=== PATIENT | female | born 1930 | race Caucasian/White ===

== ENCOUNTER 2016-08-28 19:53 | Observation (INO) | payer MEDICARE ==
[~2016-08-28] VITALS: Ht 170.2 cm; Wt 110.0 kg
[~2016-08-28 19:53] MED LIST: ASPIRIN CHILDRE81 MG PO; CARDIZEM C2 PO; COUMADIN2.5 MG PO; DOCUSATE SODIU250 MG PO; FERROUS SULFAT325 M1 PO; FOLIC ACID1 MG PO; KEPPRA500 MG PO; LOPERAMIDE HCL2 MG PO; LOVENOX150 MG/ML SC; MELOXICAM7.5 MG PO; PRENATAL1 TAB PO; PRILOSEC20 MG PO; SIMVASTATIN10 MG PO; SYSTANE OVERNIG0.3 % IO; TYLENOL325 MG PO; VICODIN EQUIVAL1 TAB PO
--- NOTE | 2016-08-28 21:23 | DIAGNOSTIC IMAGING REPORT ---
PROCEDURE: XR SOFT TISSUE NECK INDICATION: DIFFICULTY SWALLOWING TECHNIQUE: AP and lateral views. COMPARISON: None. FINDINGS: Normal epiglottis and prevertebral soft tissues. No evidence of a soft tissue mass, radiopaque foreign body or abnormal air collection. Normal airway on the AP view. Severe degenerative changes of the spine. IMPRESSION: 1. Negative study
--- NOTE | 2016-08-28 22:54 | ED CLINICAL REPORT ---
Clinical Report - Physicians/Mid Levels [facility] [address] [place] [address] 08/28/2016 19:52 Patient: SALMA MOORE Time Seen: 20:21. Arrived- By private vehicle. Historian- patient. CPT: ER phys charges level 5 (#[id number]). HISTORY OF PRESENT ILLNESS Chief Complaint: Foreign body stuck in her throat. This started just prior to arrival and is still present. It was abrupt in onset and has been constant. At its maximum, severity described as moderate. When seen in the E.D., severity described as moderate. Modifying factors- worsened by food. Not relieved by anything. The patient has had loss of appetite. (patient has a history of esophageal strictures and prior endoscopies and dilation. She was eating dinner this evening and developed sensation of food getting stuck there since that time she has not been able to swallow either liquids or solids and is having difficulty handling her secretions.). Similar symptoms previously: Several times, as bad. Diagnosis: (Esophageal stricture). Recent medical care: Not recently seen/assessed. REVIEW OF SYSTEMS No fever, sore throat, sinus drainage, nasal congestion or cough. No difficulty breathing, chest pain or pain or abdominal pain or pain. No nausea, vomiting, diarrhea, black stools or bloody stools. No difficulty with urination, skin rash, back pain or calf pain or pain. No headache, blackouts, chills, fever or sweats. No cough, difficulty breathing, pedal edema, palpitations or constipation. No diarrhea, nausea, vomiting or urinary problems. All systems otherwise negative, except as recorded above. PAST HISTORY Problems: Bronchitis. Atrial Fibrillation. Cholesterol problems . Sprain. CVA - Cerebrovascular Accident. Upper Extremity Fracture. Abrasion(s). Contusion. Dementia. Anemia. Memory impairment. Hypertension. Hyperlipidemia. Gastroesophageal Reflux Disease. Degenerative Joint Disease. Fall. Additional Surgeries: Esophageal Dilitations. Tonsillectomy. Medications: Acetaminophen Oral 1,000 mg, every 4 hres prn . ASA Oral 81mg , daily . Diltiazem HCl Oral 240 mg, daily. Docusate Sodium Oral (Capsule 250 mg) 1 capsule, daily as needed. Ferrous Sulfate Oral 325 mg, 2x a day. Folic Acid Oral (Tablet 1 mg) 1 tablet, daily. Keppra Oral 500 mg, 2x a day. Omeprazole Oral 20 mg, 2x a day. Prenat MV-FE [place]-PU-[place] Oral. Simvastatin Oral 10 mg, daily. Vicodin Oral 5 mg, at bedtime as needed. Allergies: Cephalexin.(rash, swelling) Clindamycin.(rash, swelling). SOCIAL HISTORY Never smoker. No alcohol use or drug use. ADDITIONAL NOTES The nursing notes have been reviewed. PHYSICAL EXAM Vital Signs: 08/28/2016 20:04 BP: 141/79. HR: 80. RR: 20. O2 saturation: 98%. Temp: 99.5 F. Pain level now: 0/10. Have been reviewed. Appearance: Alert. Eyes: Pupils equal, round and reactive to light. ENT: Pharynx normal. Neck: Normal inspection. Neck supple. CVS: Normal heart rate and rhythm. Heart sounds normal. Respiratory: No respiratory distress. Breath sounds normal. Abdomen: No visible injury. Soft and nontender. Bowel sounds normal. No organomegaly. No mass. Obese. Back: Normal inspection. Skin: Skin warm and dry. Normal skin color. Normal skin turgor. Extremities: Extremities exhibit normal ROM. No calf tenderness. No lower extremity edema. Neuro: Oriented X 3. No motor deficit. No sensory deficit. Reflexes normal. PROGRESS AND PROCEDURES Course of Care: 21:39 08/28/16. The case was discussed with Dr. Taveras at change of shift reviewed the patient's history and examination and x-ray findings. He will assume care of the patient and arrange an appropriate disposition for her. - MW Pt not responding to glucagon. Patient is stable. Discussed case with on-call health care provider, (Hermelindo). Reviewed test results. Agreed upon treatment plan and decision to admit. Health care provider will see patient in hospital. Patient/family counseled. Old medical records ordered. Disposition orders written. Disposition: Admitted to Acute Care. CLINICAL IMPRESSION Esophageal FB. (Electronically signed by Elia Taveras MD 08/29/2016 8:40)
--- NOTE | 2016-08-28 22:54 | ED ORDER SUMMARY ---
..... Patient: SALMA MOORE OrderSheet [facility] VisitID: [id number] [address] [place] [address] 85y, F Registration Date/Time: 08/28/2016 ORDER SHEET Weight: 111.1 kg (estimated) Allergies: Cephalexin, Clindamycin GENERAL ORDERS: Soft Tissue Neck Urgent (20:22 08/28/2016 Amol HERNANDEZ) (Ack 20:23 AMcQuoid ER Tech1) (21:03 MCampbell) MEDICATION ORDERS: Glucagon IV 0.5 mg (NOW) (20:49 08/28/2016 Amol HERNANDEZ) (21:22 Doretha R.N.) IV FLUIDS: IV Saline Lock (20:22 08/28/2016 Amol HERNANDEZ) (21:20 Doretha R.N.) Reglan IV 10 mg (NOW) (23:00 08/28/2016 Matthias HERNANDEZ) (23:50 Doretha R.N.) Zofran IV 4 mg (NOW) (23:00 08/28/2016 Matthias HERNANDEZ) (23:47 Doretha R.N.) Pepcid IV 20 mg/50mL (NOW) (23:01 08/28/2016 Matthias HERNANDEZ) (23:48 Doretha R.N.) Demerol IV 6.25 mg IV (NOW) (23:04 08/28/2016 Matthias HERNANDEZ) (23:49 Doretha R.N.) IV Lactated Ringers : initial bolus none -, then 100 mL/hr (NOW) (23:14 08/28/2016 Doretha R.N. verbal order read back to Amol HERNANDEZ) (23:46 Doretha R.N.) ORDER SHEET NOTES: [Electronically signed by Royer Mitchell R.N. (08/29/2016)] [Electronically signed by Elia Taveras MD (08:40 08/29/2016)] [Electronically locked/signed by Royer Mitchell R.N. (08/29/2016)]
--- NOTE | 2016-08-28 22:54 | ED CLINICAL REPORT ---
Clinical Report - Physicians/Mid Levels [facility] [address] [place] [address] 08/28/2016 19:52 Patient: SALMA MOORE Time Seen: 20:21. Arrived- By private vehicle. Historian- patient. CPT: ER phys charges level 5 (#[id number]). HISTORY OF PRESENT ILLNESS Chief Complaint: Foreign body stuck in her throat. This started just prior to arrival and is still present. It was abrupt in onset and has been constant. At its maximum, severity described as moderate. When seen in the E.D., severity described as moderate. Modifying factors- worsened by food. Not relieved by anything. The patient has had loss of appetite. (patient has a history of esophageal strictures and prior endoscopies and dilation. She was eating dinner this evening and developed sensation of food getting stuck there since that time she has not been able to swallow either liquids or solids and is having difficulty handling her secretions.). Similar symptoms previously: Several times, as bad. Diagnosis: (Esophageal stricture). Recent medical care: Not recently seen/assessed. REVIEW OF SYSTEMS No fever, sore throat, sinus drainage, nasal congestion or cough. No difficulty breathing, chest pain or pain or abdominal pain or pain. No nausea, vomiting, diarrhea, black stools or bloody stools. No difficulty with urination, skin rash, back pain or calf pain or pain. No headache, blackouts, chills, fever or sweats. No cough, difficulty breathing, pedal edema, palpitations or constipation. No diarrhea, nausea, vomiting or urinary problems. All systems otherwise negative, except as recorded above. PAST HISTORY Problems: Bronchitis. Atrial Fibrillation. Cholesterol problems . Sprain. CVA - Cerebrovascular Accident. Upper Extremity Fracture. Abrasion(s). Contusion. Dementia. Anemia. Memory impairment. Hypertension. Hyperlipidemia. Gastroesophageal Reflux Disease. Degenerative Joint Disease. Fall. Additional Surgeries: Esophageal Dilitations. Tonsillectomy. Medications: Acetaminophen Oral 1,000 mg, every 4 hres prn . ASA Oral 81mg , daily . Diltiazem HCl Oral 240 mg, daily. Docusate Sodium Oral (Capsule 250 mg) 1 capsule, daily as needed. Ferrous Sulfate Oral 325 mg, 2x a day. Folic Acid Oral (Tablet 1 mg) 1 tablet, daily. Keppra Oral 500 mg, 2x a day. Omeprazole Oral 20 mg, 2x a day. Prenat MV-FE [place]-JH-YS-[place] Oral. Simvastatin Oral 10 mg, daily. Vicodin Oral 5 mg, at bedtime as needed. Allergies: Cephalexin.(rash, swelling) Clindamycin.(rash, swelling). SOCIAL HISTORY Never smoker. No alcohol use or drug use. ADDITIONAL NOTES The nursing notes have been reviewed. PHYSICAL EXAM Vital Signs: 08/28/2016 20:04 BP: 141/79. HR: 80. RR: 20. O2 saturation: 98%. Temp: 99.5 F. Pain level now: 0/10. Have been reviewed. Appearance: Alert. Eyes: Pupils equal, round and reactive to light. ENT: Pharynx normal. Neck: Normal inspection. Neck supple. CVS: Normal heart rate and rhythm. Heart sounds normal. Respiratory: No respiratory distress. Breath sounds normal. Abdomen: No visible injury. Soft and nontender. Bowel sounds normal. No organomegaly. No mass. Obese. Back: Normal inspection. Skin: Skin warm and dry. Normal skin color. Normal skin turgor. Extremities: Extremities exhibit normal ROM. No calf tenderness. No lower extremity edema. Neuro: Oriented X 3. No motor deficit. No sensory deficit. Reflexes normal. PROGRESS AND PROCEDURES Course of Care: 21:39 08/28/16. The case was discussed with Dr. Taveras at change of shift reviewed the patient's history and examination and x-ray findings. He will assume care of the patient and arrange an appropriate disposition for her. - MW Pt not responding to glucagon. Patient is stable. Discussed case with on-call health care provider, (Hermelindo). Reviewed test results. Agreed upon treatment plan and decision to admit. Health care provider will see patient in hospital. Patient/family counseled. Old medical records ordered. Disposition orders written. Disposition: Admitted to Acute Care. CLINICAL IMPRESSION Esophageal FB. (Electronically signed by Elia Taveras MD 08/29/2016 8:40)
--- NOTE | 2016-08-28 22:54 | ED NURSING NOTES ---
Clinical Report - Nurses [facility] [address] [place] [address] 08/28/2016 19:52 Patient: SALMA MOORE TRIAGE Triage time 20:04 Aug 28 2016. Acuity: LEVEL 3. Chief Complaint: SWALLOWED FOREIGN BODY. Alert. JOANNE COMA SCORE: [place] Coma Scale: 15- eyes open spontaneously (4); best verbal response- oriented x 4 (5); best motor response- obeys commands (6). --20:17 Royer Mitchell R.N. 20:04 08/28/16. BP: 141/79. HR: 80. RR: 20. O2 saturation: 98%. Temp: 99.5 F (oral). Pain level now: 0/10. --20:17 Royer Mitchell R.N. Weight: 111.1 kg estimated. Height/Length: 67 inches Per Patient. BMI: 38.4. --20:06 Royer Mitchell R.N. Medications Acetaminophen Oral 1,000 mg, every 4 hres prn . ASA Oral 81mg , daily . Diltiazem HCl Oral 240 mg, daily. Docusate Sodium Oral (Capsule 250 mg) 1 capsule, daily as needed. Ferrous Sulfate Oral 325 mg, 2x a day. Folic Acid Oral (Tablet 1 mg) 1 tablet, daily. Keppra Oral 500 mg, 2x a day. Omeprazole Oral 20 mg, 2x a day. Prenat MV-FE [place]-IJ-[place] Oral. Simvastatin Oral 10 mg, daily. Vicodin Oral 5 mg, at bedtime as needed. --20:13 Royer Mitchell R.N. Allergies Cephalexin.(rash, swelling) Clindamycin.(rash, swelling) --20:13 Royer Mitchell R.N. Medication/allergy information source: the patient. --20:17 Royer Mitchell R.N. History Arrived by private vehicle. Historian: patient. Accompanied by daughter. [place] ( Choking during dinner on a bite of food.). This started today. She has had weakness and a cough. 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 PAST MEDICAL HX: Hypertension. Immunizations: up-to-date. The patient is post-menopausal. SOCIAL HX: Never smoker. No alcohol use or drug use. No infectious disease exposure. ABUSE ASSESSMENT: No report of abuse. FALL RISK ASSESSMENT: Fall risk assessment completed. No fall risk identified. NUTRITIONAL RISK ASSESSMENT: The nutritional risk assessment revealed no deficiencies. FUNCTIONAL ASSESSMENT: Functional assessment: no impairments noted. LEARNING NEEDS ASSESSMENT: The learning needs assessment revealed no barriers. SKIN INTEGRITY ASSESSMENT: Skin integrity risk assessment completed. No skin integrity risk identified. --20:17 Royer Mitchell R.N. PROBLEMS: Atrial Fibrillation. Cholesterol problems . CVA - Cerebrovascular Accident. Upper Extremity Fracture. Dementia. Hyperlipidemia. Degenerative Joint Disease. UTI - Urinary Tract Infection. --20:14 Royer Mitchell R.N. TIA - Transient Ischemic Attack [RuleOut]. --20:14 Royer Mitchell R.N. Bronchitis. --20:16 Royer Mitchell R.N. ADDITIONAL SURGERIES: Esophageal Dilitations. Tonsillectomy. --20:15 Royer Mitchell R.N. Interventions ID and allergy band on patient. To treatment room. --20:17 Royer Mitchell R.N. PHYSICAL ASSESSMENT Ambulatory to room. GENERAL / NEURO / PSYCH: Alert. Oriented X 4. HEENT: No facial asymmetry noted. Mucous membranes are pink. RESPIRATORY: Chest nontender. Breath sounds within normal limits. CVS: Cardiac rhythm: atrial fibrillation. Pulses within normal limits. GI / : Abdomen nontender and normal bowel sounds. SKIN: Skin intact. Skin is warm and dry. Normal skin turgor. --20:19 Royer Mitchell R.N. NURSING PROGRESS NOTES Patient gowned. Reassurance given. Patient identifiers checked. Call light placed in reach. Side rails up x 1. Bed placed in lowest position. Brakes of bed on. Patient ready for evaluation- chart flagged and ED physician notified. --20:19 Royer Mitchell R.N. 20:29 08/28/16. Patient transported to radiology by stretcher with tech. --20:34 Royer Mitchell R.N. 21:05 08/28/2016 Site #1 started via IV in the right forearm with an 22g angiocath, with aseptic technique and good blood return; two attempts. Blood drawn: rainbow set. Labeled in the presence of the patient and sent to the lab. Saline lock flushed with 10 mL saline. --21:20 Royer Mitchell R.N. 21:15 08/28/2016 Glucagon IVP 0.5 mg given over 1 minute(s) via site #1. Allergies verified and confirmed 5 rights. IV patency established. IV site checked: no pain, redness, or swelling. IV flushed thoroughly pre- and post-medication administration. IVP given by RN. --21:22 Royer Mitchell R.N. 22:16 08/28/16. BP: 119/88. HR: 78. RR: 20. O2 saturation: 96% on room air. --22:17 Royer Mitchell R.N. 23:31 08/28/2016 Started bag #1 1000 mL IV Fluids IV LACTATED RINGERS; at 100 mL/hr over 10 hour(s) via site #1 via IV pump. Allergies verified and confirmed 5 rights. IV patency established. IV site checked: no pain, redness, or swelling. IV flushed thoroughly pre- and post-medication administration. --23:46 Royer Mitchell R.N. 23:37 08/28/2016 Zofran (Ondansetron HCl) IVP 4 mg given over 2 minute(s) via site #1. Allergies verified and confirmed 5 rights. IV patency established. IV site checked: no pain, redness, or swelling. IV flushed thoroughly pre- and post-medication administration. IVP given by RN. --23:47 Royer Mitchell R.N. 23:38 08/28/2016 Pepcid IVP 20 mg given over 20 minute(s) via site #1. Allergies verified and confirmed 5 rights. IV patency established. IV site checked: no pain, redness, or swelling. IV flushed thoroughly pre- and post-medication administration. IVP given by RN. --23:48 Royer Mitchell R.N. 23:40 08/28/2016 Reglan (Metoclopramide HCl) IVP 10 mg given over 2 minute(s) via site #1. Allergies verified and confirmed 5 rights. IV patency established. IV site checked: no pain, redness, or swelling. IV flushed thoroughly pre- and post-medication administration. IVP given by RN. --23:50 Royer Mitchell R.N. 23:44 08/28/2016 Demerol * IVP 6.25mg --23:49 Royer Mitchell R.N. 00:30 08/29/2016 Site #[address] upon admission; patent and no signs of infection or infiltration. Good blood return present (IV infusing). --01:13 Royer Mitchell R.N. 00:30 08/29/2016 IV Fluids IV LACTATED RINGERS Continued: upon admission at the rate of 100 mL/hr. 900 mL remaining bag #1. IV patency established. IV site checked: no pain, redness, or swelling. IV flushed thoroughly. --01:14 Royer Mitchell R.N. DISPOSITION / DISCHARGE 23:40 08/28/16. BP: 127/58. HR: 78. RR: 16. O2 saturation: 96%. Pain level now: 0/10. --01:24 Royer Mitchell R.N. Departure time: 23:45 Aug 28 2016. --01:24 Royer Mitchell R.N. 23:45. Admitted to Acute Care. Transported via stretcher by tech and nurse with IV. Report was given to a nurse via a phone call. Report included patient's care, treatment, medications, reviewed medication reconcilliation, and condition (including any recent changes or anticipated changes). All questions were answered. Report was acknowledged and care was transferred. (EDSON Cedillo). Patient's personal items; items were placed in belongings bag and transported with the patient. --01:25 Royer Mitchell R.N. 23:45 08/28/16. Temp: 99.2 F (oral). --01:27 Royer Mitchell R.N. Locked/Released at 08/29/2016 1:27 by Royer Mitchell R.N.
--- NOTE | 2016-08-28 22:54 | ED NURSING NOTES ---
Clinical Report - Nurses [facility] [address] [place] [address] 08/28/2016 19:52 Patient: SALMA MOORE TRIAGE Triage time 20:04 Aug 28 2016. Acuity: LEVEL 3. Chief Complaint: SWALLOWED FOREIGN BODY. Alert. JOANNE COMA SCORE: [place] Coma Scale: 15- eyes open spontaneously (4); best verbal response- oriented x 4 (5); best motor response- obeys commands (6). --20:17 Royer Mitchell R.N. 20:04 08/28/16. BP: 141/79. HR: 80. RR: 20. O2 saturation: 98%. Temp: 99.5 F (oral). Pain level now: 0/10. --20:17 Royer Mitchell R.N. Weight: 111.1 kg estimated. Height/Length: 67 inches Per Patient. BMI: 38.4. --20:06 Royer Mitchell R.N. Medications Acetaminophen Oral 1,000 mg, every 4 hres prn . ASA Oral 81mg , daily . Diltiazem HCl Oral 240 mg, daily. Docusate Sodium Oral (Capsule 250 mg) 1 capsule, daily as needed. Ferrous Sulfate Oral 325 mg, 2x a day. Folic Acid Oral (Tablet 1 mg) 1 tablet, daily. Keppra Oral 500 mg, 2x a day. Omeprazole Oral 20 mg, 2x a day. Prenat MV-FE [place] Oral. Simvastatin Oral 10 mg, daily. Vicodin Oral 5 mg, at bedtime as needed. --20:13 Royer Mitchell R.N. Allergies Cephalexin.(rash, swelling) Clindamycin.(rash, swelling) --20:13 Royer Mitchell R.N. Medication/allergy information source: the patient. --20:17 Royer Mitchell R.N. History Arrived by private vehicle. Historian: patient. Accompanied by daughter. [place] ( Choking during dinner on a bite of food.). This started today. She has had weakness and a cough. 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 PAST MEDICAL HX: Hypertension. Immunizations: up-to-date. The patient is post-menopausal. SOCIAL HX: Never smoker. No alcohol use or drug use. No infectious disease exposure. ABUSE ASSESSMENT: No report of abuse. FALL RISK ASSESSMENT: Fall risk assessment completed. No fall risk identified. NUTRITIONAL RISK ASSESSMENT: The nutritional risk assessment revealed no deficiencies. FUNCTIONAL ASSESSMENT: Functional assessment: no impairments noted. LEARNING NEEDS ASSESSMENT: The learning needs assessment revealed no barriers. SKIN INTEGRITY ASSESSMENT: Skin integrity risk assessment completed. No skin integrity risk identified. --20:17 Royer Mitchell R.N. PROBLEMS: Atrial Fibrillation. Cholesterol problems . CVA - Cerebrovascular Accident. Upper Extremity Fracture. Dementia. Hyperlipidemia. Degenerative Joint Disease. UTI - Urinary Tract Infection. --20:14 Royer Mitchell R.N. TIA - Transient Ischemic Attack [RuleOut]. --20:14 Royer Mitchell R.N. Bronchitis. --20:16 Royer Mitchell R.N. ADDITIONAL SURGERIES: Esophageal Dilitations. Tonsillectomy. --20:15 Royer Mitchell R.N. Interventions ID and allergy band on patient. To treatment room. --20:17 Royer Mitchell R.N. PHYSICAL ASSESSMENT Ambulatory to room. GENERAL / NEURO / PSYCH: Alert. Oriented X 4. HEENT: No facial asymmetry noted. Mucous membranes are pink. RESPIRATORY: Chest nontender. Breath sounds within normal limits. CVS: Cardiac rhythm: atrial fibrillation. Pulses within normal limits. GI / : Abdomen nontender and normal bowel sounds. SKIN: Skin intact. Skin is warm and dry. Normal skin turgor. --20:19 Royer Mitchell R.N. NURSING PROGRESS NOTES Patient gowned. Reassurance given. Patient identifiers checked. Call light placed in reach. Side rails up x 1. Bed placed in lowest position. Brakes of bed on. Patient ready for evaluation- chart flagged and ED physician notified. --20:19 Royer Mitchell R.N. 20:29 08/28/16. Patient transported to radiology by stretcher with tech. --20:34 Royer Mitchell R.N. 21:05 08/28/2016 Site #1 started via IV in the right forearm with an 22g angiocath, with aseptic technique and good blood return; two attempts. Blood drawn: rainbow set. Labeled in the presence of the patient and sent to the lab. Saline lock flushed with 10 mL saline. --21:20 Royer Mitchell R.N. 21:15 08/28/2016 Glucagon IVP 0.5 mg given over 1 minute(s) via site #1. Allergies verified and confirmed 5 rights. IV patency established. IV site checked: no pain, redness, or swelling. IV flushed thoroughly pre- and post-medication administration. IVP given by RN. --21:22 Royer Mitchell R.N. 22:16 08/28/16. BP: 119/88. HR: 78. RR: 20. O2 saturation: 96% on room air. --22:17 Royer Mitchell R.N. 23:31 08/28/2016 Started bag #1 1000 mL IV Fluids IV LACTATED RINGERS; at 100 mL/hr over 10 hour(s) via site #1 via IV pump. Allergies verified and confirmed 5 rights. IV patency established. IV site checked: no pain, redness, or swelling. IV flushed thoroughly pre- and post-medication administration. --23:46 Royer Mitchell R.N. 23:37 08/28/2016 Zofran (Ondansetron HCl) IVP 4 mg given over 2 minute(s) via site #1. Allergies verified and confirmed 5 rights. IV patency established. IV site checked: no pain, redness, or swelling. IV flushed thoroughly pre- and post-medication administration. IVP given by RN. --23:47 Royer Mitchell R.N. 23:38 08/28/2016 Pepcid IVP 20 mg given over 20 minute(s) via site #1. Allergies verified and confirmed 5 rights. IV patency established. IV site checked: no pain, redness, or swelling. IV flushed thoroughly pre- and post-medication administration. IVP given by RN. --23:48 Royer Mitchell R.N. 23:40 08/28/2016 Reglan (Metoclopramide HCl) IVP 10 mg given over 2 minute(s) via site #1. Allergies verified and confirmed 5 rights. IV patency established. IV site checked: no pain, redness, or swelling. IV flushed thoroughly pre- and post-medication administration. IVP given by RN. --23:50 Royer Mitchell R.N. 23:44 08/28/2016 Demerol * IVP 6.25mg --23:49 Royer Mitchell R.N. 00:30 08/29/2016 Site #[address] upon admission; patent and no signs of infection or infiltration. Good blood return present (IV infusing). --01:13 Royer Mitchell R.N. 00:30 08/29/2016 IV Fluids IV LACTATED RINGERS Continued: upon admission at the rate of 100 mL/hr. 900 mL remaining bag #1. IV patency established. IV site checked: no pain, redness, or swelling. IV flushed thoroughly. --01:14 Royer Mitchell R.N. DISPOSITION / DISCHARGE 23:40 08/28/16. BP: 127/58. HR: 78. RR: 16. O2 saturation: 96%. Pain level now: 0/10. --01:24 Royer Mitchell R.N. Departure time: 23:45 Aug 28 2016. --01:24 Royer Mitchell R.N. 23:45. Admitted to Acute Care. Transported via stretcher by tech and nurse with IV. Report was given to a nurse via a phone call. Report included patient's care, treatment, medications, reviewed medication reconcilliation, and condition (including any recent changes or anticipated changes). All questions were answered. Report was acknowledged and care was transferred. (EDSON Cedillo). Patient's personal items; items were placed in belongings bag and transported with the patient. --01:25 Royer Mitchell R.N. 23:45 08/28/16. Temp: 99.2 F (oral). --01:27 Royer Mitchell R.N. Locked/Released at 08/29/2016 1:27 by Royer Mitchell R.N.
--- NOTE | 2016-08-28 22:54 | ED ORDER SUMMARY ---
..... Patient: SALMA MOORE OrderSheet [facility] VisitID: [id number] [address] [place] [address] 85y, F Registration Date/Time: 08/28/2016 ORDER SHEET Weight: 111.1 kg (estimated) Allergies: Cephalexin, Clindamycin GENERAL ORDERS: Soft Tissue Neck Urgent (20:22 08/28/2016 Amol HERNANDEZ) (Ack 20:23 AMcQuoid ER Tech1) (21:03 MCampbell) MEDICATION ORDERS: Glucagon IV 0.5 mg (NOW) (20:49 08/28/2016 Amol HERNANDEZ) (21:22 Doretha R.N.) IV FLUIDS: IV Saline Lock (20:22 08/28/2016 Amol HERNANDEZ) (21:20 Doretha R.N.) Reglan IV 10 mg (NOW) (23:00 08/28/2016 Matthias HERNANDEZ) (23:50 Doretha R.N.) Zofran IV 4 mg (NOW) (23:00 08/28/2016 Matthias HERNANDEZ) (23:47 Doretha R.N.) Pepcid IV 20 mg/50mL (NOW) (23:01 08/28/2016 Matthias HERNANDEZ) (23:48 Doretha R.N.) Demerol IV 6.25 mg IV (NOW) (23:04 08/28/2016 Matthias HERNANDEZ) (23:49 Doretha R.N.) IV Lactated Ringers : initial bolus none -, then 100 mL/hr (NOW) (23:14 08/28/2016 Doretha R.N. verbal order read back to Amol HERNANDEZ) (23:46 Doretha R.N.) ORDER SHEET NOTES: [Electronically signed by Royer Mitchell R.N. (08/29/2016)] [Electronically signed by Elia Taveras MD (08:40 08/29/2016)] [Electronically locked/signed by Royer Mitchell R.N. (08/29/2016)]
[2016-08-29 00:26] VITALS: BP 126/59
[2016-08-29 02:06] VITALS: BP 148/73
[2016-08-29 04:20] VITALS: BP 122/72
--- NOTE | 2016-08-29 06:28 | Provider's Discharge Care Plan ---
Problem, Goal, Plan Problem List 1. Impacted esophageal foreign body Goals: Prevent disease progress, Screening Instructions: Follow up as directed, Take meds as directed, CLEAR LIQUIDS FOR 24HRS; F/U WITH PCP WITHIN [facility]
[2016-08-29 06:53] VITALS: BP 106/49
--- NOTE | 2016-08-29 07:01 | CONSULTATION REPORT ---
DATE OF CONSULTATION: 08/29/2016 CHIEF COMPLAINT: 1. Dysphagia HISTORY OF PRESENT ILLNESS: The patient is an 85-year-old female who [facility], where she presented with an acute onset of difficulty swallowing. According to the daughter, who answers most of the information, because of the patient's early dementia, the patient has undergone upper GI endoscopy with dilation several times, the last approximately 5 months ago at the [facility]. She has a history of food lodging in her esophagus before. At present, however, after administration of a couple of doses of glucagon, she states that she is able to handle her secretions, and on observing her, she is able to drink some water. She denies any recent chest pain or shortness of breath. MEDICAL/SURGICAL HISTORY: Significant for tonsillectomy, adenoidectomy, right foot partial amputation, cataract extraction bilaterally, hysterectomy. It is unknown whether the patient has ovaries in place or not. Status post , early diagnosis dementia, hypertension, hypercholesterolemia, approximately 15 years ago she was hospitalized with a stroke and has early dementia. MEDICATIONS: 1. Acetaminophen 1000 mg every 4 hours p.r.n. 2. Aspirin 81 mg daily. 3. Diltiazem 240 mg daily. 4. Docusate 250 mg daily. 5. Ferrous sulfate 325 mg twice a day. 6. Folic acid 1 tablet daily. 7. Omeprazole 20 mg twice a day. 8. Simvastatin 10 mg daily. 9. Vicodin 5 mg at bedtime p.r.n. ALLERGIES: 1. CEPHALEXIN. 2. CLINDAMYCIN. SOCIAL HISTORY: The patient is . She lives at [facility]. She has 1 daughter, who is alive and well. The patient does not smoke, does not drink alcohol, drinks 3-4 cups of coffee a day. The patient at one time work [employer] in [place]. FAMILY HISTORY: Mother at age 92 of natural causes. Father at age 89, natural causes. No brothers or sisters. REVIEW OF SYSTEMS: She is G4, P1, AB3, menarche cannot remember. First full-term approximately age 23. Last menstrual period was in her 30s after a hysterectomy. The patient denies any history of hepatitis, jaundice, rheumatic fever, heart murmurs requiring antibiotics, bleeding tendency. She is positive for blood transfusions when she was younger, following her miscarriages and her of her child. The remaining 10-point review of systems is unremarkable. PHYSICAL EXAMINATION: VITAL SIGNS: Blood pressure is 98.1, blood pressure 122/72, pulse 85, respirations 16. GENERAL: The patient is awake, alert, conversant, does not appear to be any acute distress, appears to be handling her secretions without difficulty. HEENT: Head normocephalic, atraumatic. Pupils equal and reactive. No scleral icterus. External auditory canals clear. No nasal septal defect or discharge. Throat is clear Moist mucous membranes. NECK: Supple. No JVD, carotid bruit or adenopathy. LUNGS: Clear. No rales, rhonchi, or wheezing. O2 saturation 100%, on 4 liters/ min. nasal cannula. HEART: Regular rhythm. No murmurs that I could appreciate. ABDOMEN: Nondistended, normoactive bowel sounds. No tenderness to palpation. No hepatosplenomegaly. EXTREMITIES: The patient has 1+ pitting edema, pretibial region. Full range of motion, active and passively. NEUROLOGIC: The patient grossly intact with no focal motor neurologic deficit; however, her short-term memory appears to be altering. LYMPHATICS: No cervical, supraclavicular, axillary, or groin adenopathy. SKIN: Warm and dry with no peripheral cyanosis. LAB/IMAGING: The patient was admitted with a white count of 7.7, hemoglobin and hematocrit 13.0 and 40.1 respectively. Sodium 140, potassium 4.2, chloride 104, CO2 is 28, BUN 19, creatinine 1.0. The remaining liver function studies are normal. Total iron binding capacity is 163, is low. Urine specific gravity is 10.10. She has 1+ blood. Her PT/INR 37 and 1.9 respectively. IMPRESSION: 1. History of foreign body of the esophagus PLAN: At this particular point, the patient is handling her secretions. She has 3 options, one option is to see if she tolerates a clear liquid diet and then discharge her to her primary care provider who can then follow up with her and schedule her as an outpatient for whatever study he would like to have. Two, while she is in the hospital, proceed with a barium swallow, if this appears normal to send her home abdomen back to her primary care provider and he can follow up with her. Three is to perform an upper GI endoscopy dilation or biopsies if necessary while she is here. At this point, the patient and daughter would like to proceed with a barium swallow and then follow up with her primary care provider.
--- NOTE | 2016-08-29 08:41 | ED MAR SUMMARY ---
..... Medication Administration Record [facility] [address] [place] [address] Patient: SALMA MOORE Visit ID: [id number] 85y, F Weight: 111.1 kg Height/Length: 67 in BMI: 38.4 ALLERGIES: Cephalexin, Clindamycin Given 21:15 08/28/2016 Royer Mitchell R.N. Medication Administered: GLUCAGON [IVP], Dose: 0.5 mg IVP over 1 minute(s), Site: #1 right forearm. Medication Ordered: Glucagon IV 0.5 mg (NOW). Start 23:31 08/28/2016 Royer Mitchell R.N., Continued Upon Admission 00:30 08/29/2016 Royer Mitchell R.N. Medication Administered: IV LACTATED RINGERS, Dose: IV Fluids over 10 hour(s), Rate: 100 mL/hr, Dispensed: 1000 mL bag, Site: #1 right forearm. Medication Ordered: IV Lactated Ringers : initial bolus none -, then 100 mL/hr (NOW). Given 23:37 08/28/2016 Royer Mitchell R.N. Medication Administered: ZOFRAN [IVP] (ONDANSETRON HCL), Dose: 4 mg IVP over 2 minute(s), Site: #1 right forearm. Medication Ordered: Zofran IV 4 mg (NOW). Given 23:38 08/28/2016 Royer Mitcehll R.N. Medication Administered: PEPCID [IVP], Dose: 20 mg IVP over 20 minute(s), Site: #1 right forearm. Medication Ordered: Pepcid IV 20 mg/50mL (NOW). Given 23:40 08/28/2016 Royer Mitchell R.NMaira Medication Administered: REGLAN [IVP] (METOCLOPRAMIDE HCL), Dose: 10 mg IVP over 2 minute(s), Site: #1 right forearm. Medication Ordered: Reglan IV 10 mg (NOW). Given 23:44 08/28/2016 Royer Mitchell R.N. Medication Administered: Demerol *, Dose: 6.25mg * IVP. Medication Ordered: Demerol IV 6.25 mg IV (NOW).
--- NOTE | 2016-08-29 08:41 | ED MED RECONCILIATION SUMMARY ---
Patient: SALMA MOORE Medication Reconciliation Report [facility] VisitID: [id number] [address] [place] [address] 85y, F Registration Date/Time: 08/28/2016 Weight: 111.1 kg Height/Length: 67 in. BMI: 38.4 ALLERGIES: Cephalexin, Clindamycin The patient's Home Medications are listed below: THE FOLLOWING MEDICATIONS NEED TO BE RECONCILED: Acetaminophen Oral 1,000 mg, every 4 hres prn ASA Oral 81mg , daily Diltiazem HCl Oral 240 mg, daily Docusate Sodium Oral (250 mg) 1 capsule, daily Ferrous Sulfate Oral 325 mg, 2x a day Folic Acid Oral (1 mg) 1 tablet, daily Keppra Oral 500 mg, 2x a day Omeprazole Oral 20 mg, 2x a day Prenat MV-FE Fcgza-FW-RG-[place] Oral Simvastatin Oral 10 mg, daily Vicodin Oral 5 mg, at bedtime The source(s) of the original Home Medication information: patient The following Medications were given to the patient in the Emergency Department: Glucagon [IVP] IVP 0.5 mg, administered: 08/28/2016 9:15:00 PM IV LACTATED RINGERS IV Fluids bolus 0, then 100 mL/hr, administered: 08/28/2016 11:31:00 PM Zofran [IVP] IVP 4 mg, administered: 08/28/2016 11:37:00 PM Pepcid [IVP] IVP 20 mg, administered: 08/28/2016 11:38:00 PM Demerol IVP 6.25mg, administered: 08/28/2016 11:44:00 PM Reglan [IVP] IVP 10 mg, administered: 08/28/2016 11:40:00 PM The following Medications were prescribed to the patient: None.
--- NOTE | 2016-08-29 08:41 | ED DISCHARGE INSTRUCTIONS ---
Patient: SALMA MOORE General Instructions [facility] VisitID: [id number] [address] [place] [address] 85y, F Registration Date/Time: 08/28/2016 Esophageal FB. (Electronically signed by Elia Taveras MD 08/29/2016 8:40)
--- NOTE | 2016-08-29 08:41 | ED DISCHARGE INSTRUCTIONS ---
Patient: SALMA MOORE General Instructions [facility] VisitID: [id number] [address] [place] [address] 85y, F Registration Date/Time: 08/28/2016 Esophageal FB. (Electronically signed by Elia Taveras MD 08/29/2016 8:40)
--- NOTE | 2016-08-29 08:41 | ED MED RECONCILIATION SUMMARY ---
Patient: SALMA MOORE Medication Reconciliation Report [facility] VisitID: [id number] [address] [place] [address] 85y, F Registration Date/Time: 08/28/2016 Weight: 111.1 kg Height/Length: 67 in. BMI: 38.4 ALLERGIES: Cephalexin, Clindamycin The patient's Home Medications are listed below: THE FOLLOWING MEDICATIONS NEED TO BE RECONCILED: Acetaminophen Oral 1,000 mg, every 4 hres prn ASA Oral 81mg , daily Diltiazem HCl Oral 240 mg, daily Docusate Sodium Oral (250 mg) 1 capsule, daily Ferrous Sulfate Oral 325 mg, 2x a day Folic Acid Oral (1 mg) 1 tablet, daily Keppra Oral 500 mg, 2x a day Omeprazole Oral 20 mg, 2x a day Prenat MV-FE [place]jvn-HV-OE-[place] Oral Simvastatin Oral 10 mg, daily Vicodin Oral 5 mg, at bedtime The source(s) of the original Home Medication information: patient The following Medications were given to the patient in the Emergency Department: Glucagon [IVP] IVP 0.5 mg, administered: 08/28/2016 9:15:00 PM IV LACTATED RINGERS IV Fluids bolus 0, then 100 mL/hr, administered: 08/28/2016 11:31:00 PM Zofran [IVP] IVP 4 mg, administered: 08/28/2016 11:37:00 PM Pepcid [IVP] IVP 20 mg, administered: 08/28/2016 11:38:00 PM Demerol IVP 6.25mg, administered: 08/28/2016 11:44:00 PM Reglan [IVP] IVP 10 mg, administered: 08/28/2016 11:40:00 PM The following Medications were prescribed to the patient: None.
--- NOTE | 2016-08-29 08:41 | ED MAR SUMMARY ---
..... Medication Administration Record [facility] [address] [place] [address] Patient: SALMA MOORE Visit ID: [id number] 85y, F Weight: 111.1 kg Height/Length: 67 in BMI: 38.4 ALLERGIES: Cephalexin, Clindamycin Given 21:15 08/28/2016 Royer Mitchell R.N. Medication Administered: GLUCAGON [IVP], Dose: 0.5 mg IVP over 1 minute(s), Site: #1 right forearm. Medication Ordered: Glucagon IV 0.5 mg (NOW). Start 23:31 08/28/2016 Royer Mitchell R.N., Continued Upon Admission 00:30 08/29/2016 Royer Mitchell R.N. Medication Administered: IV LACTATED RINGERS, Dose: IV Fluids over 10 hour(s), Rate: 100 mL/hr, Dispensed: 1000 mL bag, Site: #1 right forearm. Medication Ordered: IV Lactated Ringers : initial bolus none -, then 100 mL/hr (NOW). Given 23:37 08/28/2016 Royer Mitchell R.N. Medication Administered: ZOFRAN [IVP] (ONDANSETRON HCL), Dose: 4 mg IVP over 2 minute(s), Site: #1 right forearm. Medication Ordered: Zofran IV 4 mg (NOW). Given 23:38 08/28/2016 Royer Mitchell R.N. Medication Administered: PEPCID [IVP], Dose: 20 mg IVP over 20 minute(s), Site: #1 right forearm. Medication Ordered: Pepcid IV 20 mg/50mL (NOW). Given 23:40 08/28/2016 Royer Mitchell R.NMaira Medication Administered: REGLAN [IVP] (METOCLOPRAMIDE HCL), Dose: 10 mg IVP over 2 minute(s), Site: #1 right forearm. Medication Ordered: Reglan IV 10 mg (NOW). Given 23:44 08/28/2016 Royer Mitchell R.N. Medication Administered: Demerol *, Dose: 6.25mg * IVP. Medication Ordered: Demerol IV 6.25 mg IV (NOW).
[2016-08-29 11:02] VITALS: BP 120/67
[2016-08-29 13:21] VITALS: BP 120/67
--- NOTE | 2016-08-29 13:24 | DIAGNOSTIC IMAGING REPORT ---
PROCEDURE: XR BARIUM SWALLOW INDICATION: Passed esophageal foreign body. Assess for stenosis. TECHNIQUE: Single contrast study. Fluoroscopy time, 2.2 minutes; 1843.29 mGy. 68 fluoroscopic images (including cine fluoroscopy of the esophagus). COMPARISON: Compare radiographs of the soft tissues of the neck on 08/28/2016. FINDINGS: Pharyngoesophagus is normal. There is moderate generalized narrowing of the distal 3 cm of the esophagus (luminal diameter (8 mm). There is moderate gastroesophageal reflux. The rest of the esophagus is normal. IMPRESSION: 1. Moderate generalized narrowing of the distal esophagus associated with moderate gastroesophageal reflux. Findings suggest esophageal reflux stricture. 2. Otherwise negative esophagram. No evidence of residual injury. 3. Findings discussed with Dr. Casarez
== END 2016-08-29 15:20 | disposition home or self-care (01) ==
LOC: ED SRH 19:53 → ACUTE2 SRH 22:55 → TRANS SRH 22:55 → ACUTE2 SRH 08-29 00:12
PROVIDERS: ADMIT Emergency Medicine
DX: T18.128A Food in esophagus causing other injury, initial encounter (principal); K22.2 Esophageal obstruction; I10 Essential (primary) hypertension; F03.90 Unspecified dementia, unspecified severity, without behavioral disturbance, psychotic disturbance, mood disturbance, and anxiety
CPT/HCPCS: 29230; 29243; 29263